=== PATIENT | female | born 1950 | race Caucasian/White ===

== ENCOUNTER 2017-12-22 20:05 | Emergency (ER) | payer OTHER ==
[~2017-12-22] VITALS: Ht 162.6 cm; Wt 70.4 kg
[~2017-12-22 20:05] MED LIST: ATOR20TA PO; BACT800T5 PO; CITA20TA4 PO; CLON.5 PO; CYCL1PAK; ZIPS25CA PO
[2017-12-22 20:13] VITALS: BP 171/84; PULSE 75; RESP 18; TEMP 98.9; O2SAT 97
--- NOTE | 2017-12-22 20:36 | PD ---
HPI Chief Complaint: Headache Time Seen by Provider: 20:34 Travel History International Travel<30 days: No Contact w/Intl Traveler<30days: No Traveled to known affect area: No History of Present Illness HPI Patient comes in complaining of generalized squeezing,head pain, nonradiating, 7 out of 10, denies any photophobia or any changes in her visual acuity. Patient denies any associated factors such as fever, rash, neck pain, chest pain , back pain, abdominal pain, sore throat/runny nose/cough. Patient denies any alleviating or aggravating factors. PCP is Dr. Dan States allergy to codeine and penicillin Past medical history significant for hypercholesterolemia hypertension pancreatitis cholecystectomy hysterectomy , history of depression anxiety. PFSH Past Medical History Arthritis: Yes Anxiety: Yes Depression: Yes High Cholesterol: Yes Diminished Hearing: No GERD: Yes Hypertension: Yes Immunizations Current: Yes Pancreatitis: Yes ?: Not Menopausal: Yes Past Surgical History Abdominal Surgery: Yes (GALL STONES REMOVED) Section: Yes Gynecologic Surgery: Yes ("uterus tacked up") Hysterectomy: Yes Social History Alcohol Use: No Tobacco Use: No Substance Use: No Allergies-Medications (Allergen,Severity, Reaction): Coded Allergies: codeine (Unverified Allergy, Severe, UNKNOWN, 12/22/17) penicillin G (Unverified Allergy, Severe, Anaphylaxis, 12/22/17) Reported Meds & Prescriptions Reported Meds & Active Scripts Active Fioricet (Oyzrugeciq-Dwdcdzxzgzbni-Ppxkmhoq) 50-300-40 Mg Cap 1-2 Cap PO Q6H PRN Reported Levothyroxine (Levothyroxine Sodium) 50 Mcg Tab 50 Mcg PO DAILY Baclofen 20 Mg Tab 20 Mg PO TID Zipsor (Diclofenac Potassium) 25 Mg Cap 50 Mg PO TID Atorvastatin 20 mg tab (Atorvastatin Calcium) 20 Mg Tab 20 Mg PO HS 30 Days Citalopram Hydrobromide 20 Mg Tab 20 Mg PO DAILY Klonopin (Clonazepam) 0.5 Mg Tab 0.5 Mg PO BID Review of Systems General / Constitutional: No: Fever Eyes: No: Visual changes HENT: Positive: Headaches Cardiovascular: No: Chest Pain or Discomfort Respiratory: No: Shortness of Breath Gastrointestinal: No: Abdominal Pain Genitourinary: No: Dysuria Musculoskeletal: No: Pain Skin: No Rash Neurologic: No: Weakness Psychiatric: No: Depression Endocrine: No: Polydipsia Hematologic/Lymphatic: No: Easy Bruising Physical Exam Narrative GENERAL: SKIN: Warm and dry. No rash HEAD: Atraumatic. Normocephalic. EYES: Pupils equal and round. No scleral icterus. No injection or drainage. ENT: No nasal bleeding or discharge. Mucous membranes pink and moist. NECK: Trachea midline. No JVD. Supple neck motion, negative Brudzinski's negative Kernig's CARDIOVASCULAR: Regular rate and rhythm. RESPIRATORY: No accessory muscle use. Clear to auscultation. Breath sounds equal bilaterally. GASTROINTESTINAL: Abdomen soft, non-tender, nondistended. MUSCULOSKELETAL: Extremities without clubbing, cyanosis, or edema. No obvious deformities. NEUROLOGICAL: Awake and alert. No obvious cranial nerve deficits. Motor grossly within normal limits. Five out of 5 muscle strength in the arms and legs. Normal speech. PSYCHIATRIC: Appropriate mood and affect; insight and judgment normal. Data Data Last Documented VS Orders Orders Ct Brain W/O Iv Contrast(Rout) (12/22/17 20:43) Clonidine (Catapres) (12/22/17 20:45) Iv Access Insert/Monitor (12/22/17 21:11) Oximetry (12/22/17 21:11) Sodium Chloride 0.9% Flush (Ns Flush) (12/22/17 21:15) Ketorolac Inj (Toradol Inj) (12/22/17 21:15) Prochlorperazine Inj (Compazine Inj) (12/22/17 21:15) Diphenhydramine Inj (Benadryl Inj) (12/22/17 21:15) Ed Discharge Order (12/22/17 21:33) [facility] Medical Decision Making Medical Screen Exam Complete: Yes Emergency Medical Condition: Yes Medical Record Reviewed: Yes Differential Diagnosis Intracranial hemorrhage versus headache versus sinusitis versus brain mass Narrative Course CT head read by radiologist as no evidence of acute infarct, hemorrhage, mass or edema. Diagnosis Primary Impression: Acute headache Additional Impression: Hypertension Patient Instructions: Acute Headache (ED), General Instructions Additional Instructions: Please follow-up with your primary care physician for further evaluation an assessment of your blood pressure. Today her blood pressure was elevated however he did have a headache and that may have been contributing to the elevation of your blood pressure. It is best to have your blood pressure repeated, especially when urinating pain or encounter any distress. It is not the recommended standard of care to initiate anybody on antihypertensives especially outside of just 1 or a few blood pressure readings in the emergency department. Scripts Rbmctgpqvy-Vbrhdqptygxrh-Wzeeyfxm (Fioricet) 50-300-40 Mg Cap 1-2 CAP PO Q6H Y for HEADACHE, #14 CAP 0 Refills Prov: Joseph Echavarria MD 12/22/17 Disposition: 01 DISCHARGE HOME Condition: Stable Joseph Echavarria MD December 22, 2017 20:36
[2017-12-22] MEDS ORDERED: cloNIDine HCL 0.1 MG TAB PO ONE (20:45)
[2017-12-22 20:48] VITALS: BP 178/87; RESP 18
[2017-12-22] MEDS ORDERED: LEVO50TA4 PO (20:54)
[2017-12-22] MEDS ORDERED: BACL20TA PO (20:54)
--- NOTE | 2017-12-22 21:08 | RADRPT ---
EXAM DATE: 12/22/2017 9:02 PM EDT AGE/SEX: 67 years / Female INDICATIONS: Cephalgia. Blurred vision. CLINICAL DATA: This is the patient's initial encounter. Patient reports that signs and symptoms have been present for 1 week and indicates a pain score of 10/10. MEDICAL/SURGICAL HISTORY: Hypertension. None. RADIATION DOSE: 50.63 CTDI (mGy) COMPARISON: No prior [facility] exams available for comparison. TECHNIQUE: CT of the head without contrast. Using automated exposure control and adjustment of the mA and/or kV according to patient size, radiation dose was kept as low as reasonably achievable to ob tain optimal diagnostic quality images. FINDINGS: Cerebrum: The ventricles are normal for age. No evidence of midline shift, mass lesion, hemorrhage or acute infarction. No extraaxial fluid collections are seen. Posterior Fossa: The cerebellum and brainstem are intact. The 4th ventricle is midline. The cerebe llopontine angle is unremarkable. Extracranial: The visualized portion of the orbits is intact. Skull: The calvaria is intact. No evidence of skull fracture. CONCLUSION: 1. Negative CT Head non contrast. 2. No evidence of acute infarct, hemorrhage, mass or edema. Electronically signed by: Je Fernandez MD 12/22/2017 9:06 PM EDT
[2017-12-22] MEDS ORDERED: KETOROLAC TROMETHAMINE 30 MG/ML (IVP) VIAL IVP ONE (21:15)
[2017-12-22] MEDS ORDERED: PROCHLORPERAZINE INJ 10 MG/2 ML VIAL IVP ONE (21:15)
[2017-12-22] MEDS ORDERED: diphenhydrAMINE HCL 50 MG/ML VIAL IV PUSH ONE (21:15)
[2017-12-22] MEDS ORDERED: SODIUM CHLORIDE 0.9% FLUSH 10 ML FLUSH IVF PRN (21:15)
[2017-12-22] MEDS ORDERED: BUTA1CAP PO (21:19)
[2017-12-22 21:31] VITALS: BP 163/82; PULSE 65; RESP 18; O2SAT 98
[2017-12-22 21:33] VITALS: O2SAT 98
[2017-12-22 23:33] VITALS: BP 111/68
== END 2017-12-22 23:37 | disposition home or self-care (01) ==
LOC: PHED 20:05
DX: R51 Headache (principal); I10 Essential (primary) hypertension; E78.00 Pure hypercholesterolemia, unspecified; M19.90 Unspecified osteoarthritis, unspecified site; F41.9 Anxiety disorder, unspecified; F32.9 Major depressive disorder, single episode, unspecified; K21.9 Gastro-esophageal reflux disease without esophagitis; Z87.19 Personal history of other diseases of the digestive system; Z79.899 Other long term (current) drug therapy
CPT/HCPCS: 70450; 96374; 96375; 99284; J0780; J1200; J1885